=== PATIENT | male | born 1970 | race Caucasian/White ===

== ENCOUNTER 2018-11-08 20:44 | Emergency (ER) | payer SELFPAY ==
[~2018-11-08] VITALS: Ht 185.4 cm; Wt 85.6 kg
[2018-11-08 20:51] VITALS: BP 113/69
[2018-11-08] MEDS ORDERED: LIDOcaine 1.5% w/epinephrine 1:200,000 5ml ampul IJ ONE (21:35)
[2018-11-08] MEDS ORDERED: LIDOcaine 1% w/epiNEPHrine 1:200,000 30ml vial SQ ONE (21:50)
[2018-11-08] MEDS ORDERED: LIDOcaine 1% w/EPI 1:100,000 30ml vial (MDV) IJ ONE (21:50)
== END 2018-11-08 22:54 | disposition home or self-care (01) ==
LOC: ER 20:45
DX: S61.216A Laceration without foreign body of right little finger without damage to nail, initial encounter (principal); G89.29 Other chronic pain; Z88.8 Allergy status to other drugs, medicaments and biological substances; W29.3XXA Contact with powered garden and outdoor hand tools and machinery, initial encounter; Y93.89 Activity, other specified; Y92.89 Other specified places as the place of occurrence of the external cause; Y99.9 Unspecified external cause status
CPT/HCPCS: 12001; 99283; J3490

== ENCOUNTER 2023-07-03 21:12 | Emergency (ER) | payer OTHER ==
[~2023-07-03] VITALS: Ht 185.4 cm; Wt 80.0 kg
[2023-07-03 22:11] LABS: ALANINE AMINOTRANSFERASE 29 U/L (12-78); ALBUMIN 3.9 G/DL (3.4-5.0); ALBUMIN/GLOBULIN RATIO 1.1 (1.1-1.5); ALKALINE PHOSPHATASE 73 IU/L (46-116); ANION GAP 11 (8-16); ASPARTATE AMINO TRANSFERASE 16 U/L (10-37); BILIRUBIN,TOTAL 0.5 MG/DL (0.1-1.0); BLOOD UREA NITROGEN 17 MG/DL (7-18); CALCIUM 9.4 MG/DL (8.5-10.1); CHLORIDE 102 MMOL/L (99-107); CREATININE 1.06 MG/DL (0.60-1.10); GLUCOSE 139 MG/DL (70-104); POTASSIUM 3.8 MMOL/L (3.5-5.1); SODIUM 136 MMOL/L (135-145); TOTAL CARBON DIOXIDE 23.5 MMOL/L (24-32); TOTAL PROTEIN 7.5 G/DL (6.4-8.2); eCRCL 91 ML/MIN; eGFR 73 ML/MIN
[2023-07-03 22:18] LABS: PRO BRAIN NATRIURETIC PEPTIDE 38 PG/ML (0-125)
[2023-07-03 22:28] LABS: RED CELL DISTRIBUTION WIDTH 15.9 % (11.5-14.5)
[2023-07-03 22:29] LABS: BASOPHILS # (AUTO) 0.1 X10'3 (0-0.2); BASOPHILS % (AUTO) 0.6 % (0-1); EOSINOPHILS # (AUTO) 0.1 X10'3 (0-0.9); EOSINOPHILS % (AUTO) 0.5 % (0-6); HEMATOCRIT 45.4 % (42.0-52.0); HEMOGLOBIN 15.4 g/dl (14.0-17.9); LYMPHOCYTES # (AUTO) 1.8 X10'3 (1.1-4.8); MEAN CORPUSCULAR HEMOGLOBIN 30.9 PG (27.0-31.0); MEAN CORPUSCULAR HGB CONC 33.8 g/dL (33.0-36.5); MEAN CORPUSCULAR VOLUME 91.4 FL (78-98); MEAN PLATELET VOLUME 7.3 FL (7.4-10.4); MONOCYTES # (AUTO) 0.8 X10'3 (0-0.9); MONOCYTES % (AUTO) 6.7 % (2-12); NEUTROPHILS # (AUTO) 9.9 X10'3 (1.8-7.7); NEUTROPHILS % (AUTO) 78.2 % (42-75); PLATELET COUNT 336 X10'3 (140-440); RED BLOOD COUNT 4.97 X10'6 (4.70-6.10); WHITE BLOOD COUNT 12.6 X10'3 (4.5-11.0)
[2023-07-03 22:50] VITALS: TEMP 97.6
[2023-07-03] MEDS ORDERED: normal saline 1000ML IV soln IVB ONE (23:30)
[2023-07-04 00:09] LABS: D-DIMER < 0.19 MG/L FEU (0-0.50)
[2023-07-04 01:06] LABS: HEMOGLOBIN 14.4 g/dl (14.0-17.9); MEAN PLATELET VOLUME 6.8 FL (7.4-10.4)
[2023-07-04 01:08] LABS: BASOPHILS # (AUTO) 0.1 X10'3 (0-0.2); BASOPHILS % (AUTO) 0.9 % (0-1); EOSINOPHILS # (AUTO) 0.1 X10'3 (0-0.9); EOSINOPHILS % (AUTO) 0.8 % (0-6); HEMATOCRIT 43.1 % (42.0-52.0); LYMPHOCYTES # (AUTO) 2.1 X10'3 (1.1-4.8); LYMPHOCYTES % (AUTO) 16.2 % (21-51); MEAN CORPUSCULAR HEMOGLOBIN 30.5 PG (27.0-31.0); MEAN CORPUSCULAR HGB CONC 33.5 g/dL (33.0-36.5); MEAN CORPUSCULAR VOLUME 91.1 FL (78-98); MONOCYTES # (AUTO) 1.1 X10'3 (0-0.9); MONOCYTES % (AUTO) 8.1 % (2-12); NEUTROPHILS # (AUTO) 9.7 X10'3 (1.8-7.7); PLATELET COUNT 298 X10'3 (140-440); RED BLOOD COUNT 4.73 X10'6 (4.70-6.10)
[2023-07-04 01:16] LABS: ETHANOL < 10 MG/DL (<10)
[2023-07-04 01:47] LABS: BILIRUBIN,URINE NEGATIVE (Neg); CLARITY,URINE CLEAR (Clear); COLOR,URINE STRAW (Yellow); GLUCOSE, URINE NEGATIVE (Neg); KETONES,URINE TRACE mg/dl (Neg); LEUKOCYTE ESTERASE ,URINE NEGATIVE (Neg); NITRITES, URINE NEGATIVE (Neg); OCCULT BLOOD,URINE NEGATIVE (Neg); PH,URINE 5.5 (4.8-8.0); PROTEIN,URINE NEGATIVE (Neg); UROBILINOGEN,URINE 0.2 E.U/dL (0.2-1.0)
[2023-07-04 02:13] LABS: UA COLLECTION TYPE CLN CATCH MIDSTREAM
[2023-07-04 02:24] LABS: URINE AMPHETAMINE SCREEN NEGATIVE (Neg); URINE BARBITUATE SCREEN NEGATIVE (Neg); URINE BENZODIAZEPINES SCREEN NEGATIVE (Neg); URINE CANNABINOID SCREEN POSITIVE (Neg); URINE COCAINE SCREEN NEGATIVE (Neg); URINE METHADONE SCREEN NEGATIVE (Neg); URINE OPIATE SCREEN NEGATIVE (Neg); URINE PHENCYCLIDINE SCREEN NEGATIVE (Neg)
[2023-07-04 02:47] VITALS: BP 131/90; PULSE 66; RESP 18; O2SAT 99
== END 2023-07-04 02:50 | disposition home or self-care (01) ==
LOC: ER 21:13
DX: R55 Syncope and collapse (principal); F41.9 Anxiety disorder, unspecified; G89.29 Other chronic pain; M54.9 Dorsalgia, unspecified; Z88.8 Allergy status to other drugs, medicaments and biological substances
CPT/HCPCS: 36415; 70450; 71045; 80053; 80305; 80320; 81003; 83880; 84484; 85025; 85379; 93005; 96360; 99285; J7030